=== PATIENT | female | born 2000 | race Caucasian/White ===

== ENCOUNTER 2022-10-09 09:12 | Inpatient (IN) | payer MEDICAID, SELFPAY ==
[2022-10-09 09:45] VITALS: BMI 23.0
[2022-10-09] MEDS ORDERED: Promethazine HCl 25 MG/ML VIAL IM PRN (09:52)
[2022-10-09] MEDS ORDERED: hydrALAZINE 20 MG/ML VIAL SLOW IVP PRN (09:52)
[2022-10-09] MEDS: Acetaminophen 325 MG TAB PO PRN ×2 (12:16→19:35)
[2022-10-10] MEDS: Acetaminophen 325 MG TAB PO PRN ×2 (04:53→13:52)
[2022-10-10] MEDS: Ondansetron PF 4 MG/2 ML Vial IVP PRN ×2 (05:06→13:53)
[2022-10-10] MEDS: Levothyroxine Sodium 25 MCG TAB PO SCH (05:27)
[2022-10-10] MEDS: Gentamicin 280 MG, Admixture Fee 1 EACH in Sodium Chloride 0.9% 100 ML IVPB SCH (08:47)
[2022-10-11] MEDS: Acetaminophen 325 MG TAB PO PRN ×2 (04:40→14:13)
[2022-10-11] MEDS: Levothyroxine Sodium 25 MCG TAB PO SCH (04:41)
[2022-10-11 05:13] LABS: #Eosinphils 0.1 10x3/uL (0.0-0.5); #Monocytes 1.1 10x3/uL (0.0-1.1); #Neutrophils 7.7 10x3/uL (1.5-8.4); %Basophils 0.2 % (0.0-2.0); %Eosinophils 0.8 % (0.0-6.0); %Lymphocytes 15.5 % (18.0-47.0); %Monocytes 10.1 % (0.0-10.0); %Neutrophils 72.9 % (40.0-75.0); Hematocrit 30.6 % (34.9-44.5); Hemoglobin 10.4 g/dL (12.0-15.5); Mean Corpuscular Hemoglobin 31.5 pg (27.0-33.0); Mean Corpuscular Volume 92.7 fl (81.6-98.3); Mean Platelet Volume 10.1 fl (7.4-10.4); Platelet Count 371 10x3/uL (150-450); RBC Distribution Width 12.7 % (11.5-14.5); White Blood Cell (WBC) Count 10.5 10x3/uL (3.5-10.5)
[2022-10-11 05:29] LABS: Anion Gap 14 mmol/L (10-20); BUN (Urea Nitrogen) 6 mg/dL (7.0-18.7); Calc. Creatinine Clearance 134 mL/min (70-130); Calcium 9.1 mg/dL (7.8-10.44); Carbon Dioxide 20 mmol/L (22-29); Chloride 107 mmol/L (98-107); Estimated GFR 130; Glucose 90 mg/dL (70-105); Potassium 3.7 mmol/L (3.5-5.1); Sodium 137 mmol/L (136-145)
[2022-10-11] MEDS: Gentamicin 280 MG, Admixture Fee 1 EACH in Sodium Chloride 0.9% 100 ML IVPB SCH (07:46)
[2022-10-12] MEDS: Gentamicin 280 MG, Admixture Fee 1 EACH in Sodium Chloride 0.9% 100 ML IVPB SCH (09:00)
[2022-10-12] MEDS: Levothyroxine Sodium 25 MCG TAB PO SCH (09:06)
[2022-10-12 11:20] VITALS: BP 108/63; TEMP 98.2
== END 2022-10-12 12:24 | disposition home or self-care (01) | DRG 832 ==
LOC: CSHLD 09:12 → CSHANTE 13:00
PROVIDERS: ADMIT Obstetrics & Gynecology; ATTEND Obstetrics & Gynecology
DX: O23.03 Infections of kidney in pregnancy, third trimester (principal); N13.6 Pyonephrosis; Z16.29 Resistance to other single specified antibiotic; O36.5930 Maternal care for other known or suspected poor fetal growth, third trimester, not applicable or unspecified; O99.283 Endocrine, nutritional and metabolic diseases complicating pregnancy, third trimester; E03.9 Hypothyroidism, unspecified; B96.20 Unspecified Escherichia coli [E. coli] as the cause of diseases classified elsewhere; Z3A.35 35 weeks gestation of pregnancy; Z88.0 Allergy status to penicillin; Z79.890 Hormone replacement therapy
CPT/HCPCS: 76805; 80048; 84443; 85025; J1580; J2405; J3490